=== PATIENT | male | born 1980 | race Two or more races ===

== ENCOUNTER 2016-11-14 15:24 | Emergency (ER) | payer BC ==
[~2016-11-14] VITALS: Ht 170.2 cm; Wt 99.8 kg
[2016-11-14] MEDS ORDERED: IV LR 1000 ML 1,000 ML IV ONE (16:00)
[2016-11-14] MEDS ORDERED: ONDANSETRON HCL/PF 4 MG/2 ML VIAL IVP ONE (16:00)
[2016-11-14] MEDS ORDERED: ONDANSETRON HCL/PF 4 MG/2 ML VIAL ONE (16:12)
[2016-11-14] MEDS ORDERED: IV SET PRIMARY 1 EA INFUS.SET MC ONE (16:12)
[2016-11-14] MEDS ORDERED: IV LR 500 ML IV ONE (16:14)
[2016-11-14 17:58] VITALS: BP 118/76
== END 2016-11-14 17:59 | disposition home or self-care (01) ==
LOC: EDSEX 15:29 → ER 15:29
DX: F12.929 Cannabis use, unspecified with intoxication, unspecified (principal)
CPT/HCPCS: A4606; J2405; J7120; Z7610